=== PATIENT | female | born 1945 | race Caucasian/White ===

== ENCOUNTER 2016-08-04 08:33 | Outpatient (CLI) | payer OTHER ==
[~2016-08-04 08:33] MED LIST: AMLO5TAB4 PO; AMOX250S64; ROSU20TA PO
== END 2016-08-04 18:21 | disposition home or self-care (01) ==
LOC: SMA 08:33
PROVIDERS: ATTEND Family Medicine
DX: R92.1 Mammographic calcification found on diagnostic imaging of breast (principal)
CPT/HCPCS: G0204; G0206

== ENCOUNTER 2017-01-28 10:05 | Outpatient (CLI) | payer OTHER | END 2017-01-28 21:04 | disposition home or self-care (01) | LOC: SMA 10:05 | PROVIDERS: ATTEND Family Medicine | DX: Z12.31 Encounter for screening mammogram for malignant neoplasm of breast (principal); N63 Unspecified lump in breast | CPT/HCPCS: G0202 ==

== ENCOUNTER 2018-02-08 10:49 | Outpatient (CLI) | payer OTHER | END 2018-02-08 21:26 | disposition home or self-care (01) | LOC: SMA 10:49 | PROVIDERS: ATTEND Family Medicine | DX: Z12.31 Encounter for screening mammogram for malignant neoplasm of breast (principal) | CPT/HCPCS: 77067 ==